=== PATIENT | female | born 1930 | race Caucasian/White ===

== ENCOUNTER 2018-08-01 09:32 | Emergency (ER) | payer MEDICARE, BC ==
[2018-08-01 09:36] VITALS: TEMP 97
[2018-08-01] MEDS ORDERED: OXYMETAZOLINE 0.05% NASL SPRAY 1 SPRAY BOTTLE NASAL STA (09:38)
[2018-08-01 10:12] LABS: Basophils % (A) 1 %; Eosinophils # (A) 0.3 k/uL (0-0.7); Eosinophils % (A) 5 %; HCT 34.6 % (34.0-46.0); Lymphocytes # (A) 1.2 k/uL (1.0-4.8); Lymphocytes % (A) 18 %; MCH 30.4 pg (25.0-35.0); MCHC 31.9 g/dL (31.0-37.0); MCV 95.3 fL (80.0-100.0); Mean Platelet Volume 7.7; Monocytes # (A) 0.4 k/uL (0-1.0); Monocytes % (A) 5 %; Neutrophils # (A) 4.8 k/uL (1.3-7.7); Neutrophils % (A) 71 %; Platelet Count 231 k/uL (150-450); RBC 3.63 m/uL (3.80-5.40); RDW 13.3 % (11.5-15.5); WBC 6.9 k/uL (3.8-10.6)
[2018-08-01 10:15] LABS: INR 2.7 (<1.2); Partial Thromboplastin Time 29.6 sec (22.0-30.0); Prothrombin Time 23.8 sec (9.0-12.0)
--- NOTE | 2018-08-01 10:51 | ED ---
ENT HPI - General Chief complaint: ENT Stated complaint: epistaxis Time Seen by Provider: 08/01/18 09:38 Source: patient, EMS, RN notes reviewed Mode of arrival: EMS Limitations: no limitations - History of Present Illness Initial comments: 88-year-old female presents emergency Department chief complaint epistaxis. Patient states she's had intermittent bleeding over the last week. Patient states this started this morning and has not stopped. Patient denies any headache, dizziness, chest pain, shortness breath, nausea vomiting. Patient states it's only her left nostril she had no trauma. Patient does admit that she takes Coumadin and had recent increase in her dose approximately 2 weeks ago. Patient states she has not had it checked since. - Related Data Home Medications Medication Instructions Recorded Confirmed Aspirin 81 mg PO DAILY 11/06/15 08/01/18 Furosemide [Lasix] 40 mg PO DAILY 11/06/15 08/01/18 Oxybutynin Chloride [Ditropan XL] 10 mg PO DAILY 11/06/15 08/01/18 Valsartan/Hydrochlorothiazide 1 tab PO DAILY 11/06/15 08/01/18 [Valsartan-Hctz 160-12.5 mg Tab] Atorvastatin [Lipitor] 40 mg PO HS 08/01/18 08/01/18 Latanoprost [Xalatan 0.005%] 1 drop BOTH EYES HS 08/01/18 08/01/18 Warfarin [Coumadin] 1.25 mg PO SUMOWEFRSA 08/01/18 08/01/18 Warfarin [Coumadin] 2.5 mg PO TUTH 08/01/18 08/01/18 Previous Rx's Medication Instructions Recorded Digoxin [Lanoxin] 125 mcg PO DAILY #90 tab 11/10/15 Metoprolol Tartrate [Lopressor] 50 mg PO BID #60 tab 11/10/15 Amoxicillin 875 mg PO Q12HR #14 tablet 08/01/18 Allergies Allergy/AdvReac Type Severity Reaction Status Date / Time No Known Allergies Allergy Verified 08/01/18 11:25 Review of Systems ROS Statement: Those systems with pertinent positive or pertinent negative responses have been documented in the HPI. ROS Other: All systems not noted in ROS Statement are negative. Past Medical History Past Medical History: Atrial Fibrillation, Chest Pain / Angina, COPD, CVA/TIA, Myocardial Infarction ([place]) Additional Past Medical History / Comment(s): [place] with stent placement approx 4 years ago. Last Myocardial Infarction Date:: 2011 History of Any Multi-Drug Resistant Organisms: None Reported Past Surgical History: Appendectomy, Cholecystectomy, Heart Catheterization With Stent, Orthopedic Surgery, Tonsillectomy Additional Past Surgical History / Comment(s): 2 artifical hips, 1 knee replacement Past Anesthesia/Blood Transfusion Reactions: No Reported Reaction Date of Last Stent Placement:: 2011 Past Psychological History: No Psychological Hx Reported Smoking Status: Never smoker Past Alcohol Use History: None Reported Past Drug Use History: None Reported - Past Family History Mother Family Medical History: Diabetes Mellitus Father Family Medical History: Cancer Brother(s) Family Medical History: Diabetes Mellitus, Sleep Apnea/CPAP/BIPAP General Exam Limitations: no limitations General appearance: alert, in no apparent distress Head exam: Present: atraumatic, normocephalic, normal inspection Eye exam: Present: normal appearance, PERRL, EOMI. Absent: scleral icterus, conjunctival injection, periorbital swelling ENT exam: Present: normal oropharynx, mucous membranes moist, TM's normal bilaterally, normal external ear exam, other (Epistaxis noted the left nostril) Neck exam: Present: normal inspection, full ROM. Absent: tenderness, meningismus, lymphadenopathy Respiratory exam: Present: normal lung sounds bilaterally. Absent: respiratory distress, wheezes, rales, rhonchi, stridor Cardiovascular Exam: Present: regular rate, normal rhythm, normal heart sounds. Absent: systolic murmur, diastolic murmur, rubs, gallop, clicks Course Vital Signs 08/01/18 09:34 Temperature 97.0 F L Pulse Rate 77 Respiratory 18 Rate Blood Pressure 144/74 O2 Sat by Pulse 99 Oximetry Procedures - Procedures Initial comment: Rhino Rocket was placed on left nostril with no complications. Anterior and posterior balloon were inflated with 2 ml of air Medical Decision Making - Medical Decision Making 88-year-old female presents emergency from for epistaxis. Patient did have nasal packing with Rhino Rocket in emergency department. Patient's bleeding has stopped for over one hour. Patient will hold Coumadin 2 days. Patient will follow-up with ENT and was placed on antibiotics at this time. - Lab Data Result diagrams: 08/01/18 09:54 Lab Results 08/01/18 08/01/18 Range/Units 09:54 09:54 WBC 6.9 (3.8-10.6) k/uL RBC 3.63 L (3.80-5.40) m/uL Hgb 11.0 L (11.4-16.0) gm/dL Hct 34.6 (34.0-46.0) % MCV 95.3 (80.0-100.0) fL MCH 30.4 (25.0-35.0) pg MCHC 31.9 (31.0-37.0) g/dL RDW 13.3 (11.5-15.5) % Plt Count 231 (150-450) k/uL Neutrophils % 71 % Lymphocytes % 18 % Monocytes % 5 % Eosinophils % 5 % Basophils % 1 % Neutrophils # 4.8 (1.3-7.7) k/uL Lymphocytes # 1.2 (1.0-4.8) k/uL Monocytes # 0.4 (0-1.0) k/uL Eosinophils # 0.3 (0-0.7) k/uL Basophils # 0.0 (0-0.2) k/uL PT 23.8 H (9.0-12.0) sec INR 2.7 H (<1.2) APTT 29.6 (22.0-30.0) sec Disposition Clinical Impression: Epistaxis Disposition: HOME SELF-CARE Condition: Stable Instructions: Nosebleed (ED) Additional Instructions: Please return to the Emergency Department if symptoms worsen or any other concerns. Hold Coumadin for 2 days. Prescriptions: Amoxicillin 875 mg PO Q12HR #14 tablet Is patient prescribed a controlled substance at d/c from ED?: No Referrals: Ted Arredondo MD [Primary Care Provider] - 1-2 days Nithin Espinal DO [Doctor of Osteopathic Medicine] - 1-2 days Time of Disposition: 11:48
[2018-08-01 12:09] VITALS: BP 165/91; PULSE 96; RESP 16
== END 2018-08-01 12:15 | disposition home or self-care (01) ==
LOC: EC 09:32
DX: R04.0 Epistaxis (principal); I48.91 Unspecified atrial fibrillation; I25.2 Old myocardial infarction; Z86.73 Personal history of transient ischemic attack (TIA), and cerebral infarction without residual deficits; Z95.5 Presence of coronary angioplasty implant and graft; Z96.643 Presence of artificial hip joint, bilateral; Z96.659 Presence of unspecified artificial knee joint; Z79.82 Long term (current) use of aspirin; Z79.01 Long term (current) use of anticoagulants; Z79.899 Other long term (current) drug therapy
CPT/HCPCS: 30901; 36415; 85025; 85610; 85730; 99283